=== PATIENT | male | born 1990 | race Caucasian/White ===

== ENCOUNTER 2023-04-02 14:21 | Emergency (ER) | payer OTHER ==
[~2023-04-02] VITALS: Ht 180.3 cm; Wt 99.8 kg
[2023-04-02 15:37] LABS: BASO % 0.3 % (0.0-1.0); EOS # 0.1 10*3/uL (0.0-0.4); EOS % 1.2 % (1.0-4.0); HEMATOCRIT 46.3 % (42.0-52.0); LYMPH # 1.5 10*3/uL (1.3-4.4); LYMPH % 15.5 % (27.0-41.0); MEAN CELL VOLUME 81.9 fl (80.0-94.0); MEAN CORPUSCULAR HGB 28.3 pg (27.0-31.0); MEAN CORPUSCULAR HGB CONC 34.6 g/dl (33.0-37.0); MEAN PLATELET VOLUME 9.5 fl (9.6-12.3); MONO # 1.1 10*3/uL (0.1-1.0); NEUT % 71.7 % (47.0-73.0); PLATELET COUNT AUTOMATED 267 10*3/uL (130-400); RED BLOOD COUNT 5.65 10*6/uL (4.50-5.90); RED CELL DISTRI WIDTH 12.1 % (0-14.5); WHITE BLOOD COUNT 9.7 10*3/uL (4.8-10.8)
[2023-04-02 15:48] LABS: ACT PARTIAL THROMBO TIME 33.1 SECONDS (20.0-32.1)
[2023-04-02 15:59] LABS: ALKALINE PHOSPHATASE 85 U/L (46-116); BUN 11 mg/dl (9-23); CHLORIDE 104 mmol/L (98-107); SGPT/ALT 44 U/L (5-49); TOTAL PROTEIN 7.7 gm/dL (6.0-8.0)
[2023-04-02] MEDS ORDERED: NAPROSYN500 MG PO (18:44)
== END 2023-04-02 18:54 | disposition home or self-care (01) ==
LOC: ED 14:21
PROVIDERS: Family Medicine
DX: J06.9 Acute upper respiratory infection, unspecified (principal); R09.1 Pleurisy; R10.2 Pelvic and perineal pain; F17.210 Nicotine dependence, cigarettes, uncomplicated; Z20.822 Contact with and (suspected) exposure to COVID-19

== ENCOUNTER 2025-02-23 14:07 | Emergency (ER) | payer SELFPAY ==
[~2025-02-23] VITALS: Ht 154.9 cm; Wt 104.3 kg
[~2025-02-23 14:07] MED LIST: NAPROSYN500 MG PO
[2025-02-23] MEDS ORDERED: LIDOCAINE 1 EA PATCH T ONE (15:30)
[2025-02-23] MEDS ORDERED: LIDOCAINE 4% PATCH T ONE (15:35)
[2025-02-23] MEDS ORDERED: LIDODERM1 EACH T (16:42)
[2025-02-23] MEDS ORDERED: METHOCARBAMOL500 M1 PO (16:42)
== END 2025-02-23 16:52 | disposition home or self-care (01) ==
LOC: ED 14:07
DX: S39.012A Strain of muscle, fascia and tendon of lower back, initial encounter (principal); Z79.899 Other long term (current) drug therapy; V89.2XXA Person injured in unspecified motor-vehicle accident, traffic, initial encounter; Y93.89 Activity, other specified; Y92.89 Other specified places as the place of occurrence of the external cause; Y99.8 Other external cause status

== ENCOUNTER 2025-03-18 11:54 | Emergency (ER) | payer OTHER ==
[~2025-03-18] VITALS: Wt 106.6 kg
[~2025-03-18 11:54] MED LIST changes: +LIDODERM1 EACH T; +METHOCARBAMOL500 M1 PO
[2025-03-18] MEDS ORDERED: PREDNISONE20 M1 PO (12:21)
== END 2025-03-18 14:11 | disposition home or self-care (01) ==
LOC: ED 11:54
DX: M54.6 Pain in thoracic spine (principal); M54.50 Low back pain, unspecified; Z79.899 Other long term (current) drug therapy